=== PATIENT | male | born 1960 | race Caucasian/White ===

== ENCOUNTER 2023-01-30 06:04 | Emergency (ER) | payer OTHER ==
[~2023-01-30] VITALS: Ht 182.9 cm; Wt 81.0 kg
[2023-01-30] MEDS ORDERED: LORazepam 2MG/ML-1ML VIAL IV ONE (06:30)
[2023-01-30 06:40] VITALS: PULSE 94; RESP 16; O2SAT 99
[2023-01-30] MEDS ORDERED: SODIUM CHLORIDE 0.9% 2,450 ML IV ONE (06:45)
[2023-01-30 07:21] LABS: Acetaminophen < 2.0 UG/ML (10.0-20.0); Basophils # (auto) 0 10 ^3/uL (0-0.2); Basophils % (auto) 0.2 % (0.0-2.0); Eosinophils # (auto) 0.1 10 ^3/uL (0-0.8); Hematocrit 46.9 % (41.0-53.0); Hemoglobin 14.9 g/dL (13.5-17.5); Lymphocytes # (auto) 0.9 10 ^3/uL (0.4-5.4); Mean Corpuscular Hemoglobin 25.7 pg (28.0-32.0); Mean Corpuscular Hgb Conc. 31.7 g/dL (32.0-36.0); Red Blood Cells 5.78 10^6/uL (4.5-5.90)
[2023-01-30 07:23] LABS: Alanine Aminotransferase 33 U/L (7-40); Albumin 4.5 g/dL (3.2-4.8); Alkaline Phosphatase 70 U/L (46-116); Anion Gap 15 (5-15); Aspartate Aminotransferase 17 U/L (13-40); Bilirubin, Total 0.3 mg/dL (0.2-1.0); Blood Alcohol < 3.0 mg/dL (<10); Blood Urea Nitrogen 9 mg/dL (9-23); Calcium 8.6 mg/dL (8.7-10.4); Carbon Dioxide 16 mmol/L (20-30); Chloride 101 mmol/L (98-107); Eosinophils % (auto) 0.4 % (0.0-7.0); Glucose 159 mg/dL (74-106); INR 0.98 (0.9-1.15); Lipase 55 U/L (12-53); Magnesium 2.3 mg/dL (1.6-2.6); Mean Corpuscular Volume 81.2 fL (80.0-100.0); Monocytes # (auto) 1.1 10 ^3/uL (0-1.3); Monocytes % (auto) 6.1 % (0.0-12.0); Neutrophils # (auto) 16.6 10 ^3/uL (1.6-8.6); Neutrophils % (auto) 88.3 % (37.0-80.0); Potassium 3.6 mmol/L (3.5-5.1); Prothrombin Time 10.3 sec (9.3-11.8); Red Cell Distribution Width 14.4 % (11.8-14.3); Sodium 132 mmol/L (136-145); White Blood Cell 18.7 10^3/uL (4.4-10.8)
[2023-01-30 07:30] VITALS: PULSE 89; RESP 14; O2SAT 97
[2023-01-30 07:30] LABS: Salicylate < 3.0 mg/dL (2.8-20.0)
[2023-01-30 08:17] LABS: Lactic Acid w/Reflex 4.9 mmol/L (0.4-2.0)
[2023-01-30 08:23] LABS: Barbiturate Scree,Urine Neg (NEGATIVE); Benzodiazephine Screen, Urine Pos (NEGATIVE); Cannabinoid Screen, Urine Pos (NEGATIVE); Cocaine Screen, Urine Neg (NEGATIVE); Opiate Scree,Urine Neg (NEGATIVE); Phencyclidine Screen, Urine Neg (NEGATIVE)
[2023-01-30 08:24] LABS: Amphetamine Screen, Urine Neg (NEGATIVE)
[2023-01-30] MEDS ORDERED: SODIUM CHLORIDE 0.9% 1,000 ML IV ONE (08:30)
[2023-01-30] MEDS ORDERED: SODIUM CHLORIDE 0.9% 500 ML IV ONE (08:30)
[2023-01-30] MEDS ORDERED: VANCOMYCIN 1GM/200ML 250 ML IV ONE (08:30)
[2023-01-30] MEDS ORDERED: PIPERACILLIN-TAZO 4.5GM 100 ML IV ONE (08:30)
[2023-01-30] MEDS ORDERED: levETIRAcetam 1000 mg/100ml 100 ML IV ONE (09:15)
[2023-01-30 12:31] VITALS: BP 118/72; PULSE 83; RESP 18; TEMP 99; O2SAT 95
[2023-02-01] MEDS ORDERED: VANCOMYCIN 1GM/200ML 250 ML IV ONE (14:58)
== END 2023-01-30 12:49 | disposition short-term general hospital (02) ==
LOC: ER 06:04 → EDBD 06:04 → ER 08:43
DX: R56.9 Unspecified convulsions (principal); D72.829 Elevated white blood cell count, unspecified; R74.02 Elevation of levels of lactic acid dehydrogenase [LDH]; I10 Essential (primary) hypertension; Z79.899 Other long term (current) drug therapy; Z98.890 Other specified postprocedural states
CPT/HCPCS: 36415; 51702; 70450; 71045; 80053; 80307; 80320; 80329; 82542; 82962; 83605; 83690; 83735; 84484; 85025; 85610; 87040; 93005; 96361; 96365; 96366; 96367; 96368; 96375; 99285; J1953; J2060; J2543; J3370; J7030; J7040